=== PATIENT | male | born 2000 ===

== ENCOUNTER 2021-07-03 03:07 | Emergency (ER) | payer SELFPAY ==
[2021-07-03] MEDS ORDERED: Lidocaine 1% 5 ML VIAL INJECT ONE (03:23)
== END 2021-07-03 04:17 | disposition home or self-care (01) ==
LOC: MW.ED 03:07
DX: S46.322A Laceration of muscle, fascia and tendon of triceps, left arm, initial encounter (principal); W18.30XA Fall on same level, unspecified, initial encounter
CPT/HCPCS: 12002; 99282; 99282-25